=== PATIENT | male | born 1980 | race Caucasian/White ===

== ENCOUNTER 2021-01-24 11:52 | Outpatient (CLI) | payer OTHER | END 2021-01-24 11:53 | disposition home or self-care (01) | LOC: DTY/OP 11:52 | PROVIDERS: ATTEND Physician Assistant Medical | DX: I10 Essential (primary) hypertension (principal); Z68.41 Body mass index [BMI] 40.0-44.9, adult | CPT/HCPCS: 97802 ==

== ENCOUNTER 2022-08-01 08:22 | Outpatient (CLI) | payer BC | END 2022-08-01 08:23 | disposition home or self-care (01) | LOC: SCSMRI 08:22 | PROVIDERS: ATTEND Family Medicine | DX: M51.16 Intervertebral disc disorders with radiculopathy, lumbar region (principal); M47.817 Spondylosis without myelopathy or radiculopathy, lumbosacral region; M46.06 Spinal enthesopathy, lumbar region; M47.26 Other spondylosis with radiculopathy, lumbar region | CPT/HCPCS: 70210; 72100; 72148 ==